=== PATIENT | male | born 1945 | race Hispanic/Latino ===

== ENCOUNTER 2019-09-20 06:19 | Emergency (ER) | payer MEDICARE ==
--- NOTE | 2019-09-20 18:29 | Emergency Department Report ---
ED General Adult HPI - General Chief complaint: Psych Stated complaint: SHAKING/KENNY Time Seen by Provider: 09/20/19 18:05 Source: patient, EMS Mode of arrival: Wheelchair Limitations: Physical Limitation - History of Present Illness Initial comments: Patient is a 73-year-old male that presents emergency room with multiple complaints. Patient states he is having increased anxiety since he quit drinking 2 weeks ago. Patient states the anxiety is making it difficult for him to walk and is also feeling short of breath due to the anxiety. Patient states he has taken Ativan in the past with great success. Patient states every time he tries to stop drinking his anxiety kicks up. Patient denies chest pain. Patient denies nausea vomiting. Patient states his difficulty walking and shortness of breath and anxiety have been going on for 1 week. Patient also complains of right lower abdominal pain secondary to a inguinal hernia. Patient states the pain is a 7 out of 10. Patient states the pain is better with rest and worse with palpation and movement. Patient states he normally can reduce it but today is not able to. -: Sudden Location: abdomen Severity scale (0 -10): 7 Quality: stabbing Consistency: constant Improves with: rest Worsens with: movement Associated Symptoms: loss of appetite, shortness of breath. denies: confusion, chest pain, cough, diaphoresis, fever/chills, headaches, malaise, nausea/vomiting, rash, seizure, syncope, weakness Treatments Prior to Arrival: none - Related Data Previous Rx's Medication Instructions Recorded Last Taken Type Folic Acid [Folvite] 1 mg PO QDAY #30 tablet 09/09/19 Unknown Rx Thiamine [Vitamin B-1] 100 mg PO DAILY #30 tablet 09/09/19 Unknown Rx LORazepam [Ativan] 0.5 mg PO BID PRN #12 tab 09/20/19 Unknown Rx Allergies Allergy/AdvReac Type Severity Reaction Status Date / Time No Known Allergies Allergy Verified 08/16/19 07:54 ED Review of Systems ROS: Stated complaint: SHAKING/KENNY Other details as noted in HPI Constitutional: denies: chills, fever Eyes: denies: eye pain, eye discharge, vision change ENT: denies: ear pain, throat pain Respiratory: shortness of breath. denies: cough, wheezing Cardiovascular: denies: chest pain, palpitations Endocrine: no symptoms reported Gastrointestinal: abdominal pain. denies: nausea, diarrhea Genitourinary: denies: urgency, dysuria Musculoskeletal: denies: back pain, joint swelling, arthralgia Skin: denies: rash, lesions Neurological: denies: headache, weakness, paresthesias Psychiatric: anxiety. denies: depression Hematological/Lymphatic: denies: easy bleeding, easy bruising ED Past Medical Hx - Past Medical History Previous Medical History?: Yes Hx Hypertension: No Hx Psychiatric Treatment: Yes (depressed/anxiety) Additional medical history: alchoholic - Surgical History Past Surgical History?: Yes Additional Surgical History: left inguinal hernia - Family History Family history: no significant - Social History Smoking Status: Never Smoker Substance Use Type: Alcohol - Medications Home Medications: Home Medications Medication Instructions Recorded Confirmed Last Taken Type Folic Acid [Folvite] 1 mg PO QDAY #30 tablet 09/09/19 Unknown Rx Thiamine [Vitamin B-1] 100 mg PO DAILY #30 tablet 09/09/19 Unknown Rx LORazepam [Ativan] 0.5 mg PO BID PRN #12 tab 09/20/19 Unknown Rx ED Physical Exam - General Limitations: Physical Limitation General appearance: alert, in no apparent distress - Head Head exam: Present: atraumatic, normocephalic - Eye Eye exam: Present: normal appearance, PERRL Pupils: Present: normal accommodation - ENT ENT exam: Present: mucous membranes moist - Neck Neck exam: Present: normal inspection, full ROM. Absent: tenderness, meningismus - Respiratory Respiratory exam: Present: normal lung sounds bilaterally. Absent: respiratory distress - Cardiovascular Cardiovascular Exam: Present: regular rate, normal rhythm. Absent: systolic murmur, diastolic murmur, rubs, gallop - GI/Abdominal GI/Abdominal exam: Present: soft, tenderness (rt lower abd and inguinal tenderness to palpation), normal bowel sounds, hernia. Absent: distended - Rectal Rectal exam: Present: deferred - Extremities Exam Extremities exam: Present: normal inspection - Back Exam Back exam: Present: normal inspection - Neurological Exam Neurological exam: Present: alert, oriented X3 - Psychiatric Psychiatric exam: Present: anxious - Skin Skin exam: Present: warm, dry, intact, normal color. Absent: rash ED Course Vital Signs 09/20/19 09/20/19 09/20/19 06:30 19:30 19:45 Temperature 97.7 F Pulse Rate 86 104 H 105 H Respiratory 20 21 Rate Blood Pressure 125/89 148/90 O2 Sat by Pulse 98 Oximetry 09/20/19 09/20/19 09/20/19 20:00 20:15 20:30 Temperature Pulse Rate 111 H 103 H 97 H Respiratory 21 20 15 Rate Blood Pressure 148/90 145/95 133/78 O2 Sat by Pulse 96 92 Oximetry - Reevaluation(s) Reevaluation #1: I reexamined the patient. Patient's right inguinal hernia appears softer. The patient's right inguinal hernia was completely reduced. No tenderness now. Patient states his pain and his anxiety are better. Patient states his shortness of breath is gone. 09/20/19 23:01 Reevaluation #2: I discussed all results and clinical findings with patient. I discussed plan of care with patient. Patient agrees with plan of care. Patient is stable for discharge. Patient will be discharged home. Patient given discharge instructions. Patient voiced understanding of discharge instructions. 09/20/19 23:40 ED Medical Decision Making - Lab Data Result diagrams: 09/20/19 18:54 09/20/19 18:54 - EKG Data -: EKG Interpreted by [facility] EKG shows normal: sinus rhythm, axis, intervals, QRS complexes, ST-T waves Rate: normal - Radiology Data Radiology results: report reviewed, image reviewed CT abdomen pelvis w con INDICATION: Abdominal pain,. Right inguinal hernia TECHNIQUE: All CT scans at this location are performed using the following dose modulation technique: Automated exposure control. Helical slices were obtained through the abdomen and pelvis. 100 cc of Omnipaque 300 is administered. COMPARISON: None available. FINDINGS: Abdomen: There is linear atelectasis in the right lung base. The liver, spleen, pancreas, adrenal glands, and kidneys show no acute abnormalities. There is a small nonobstructing calyceal stone in the lower pole the left kidney. Atherosclerotic calcifications are noted in the celiac artery and splenic arteries. There is no adenopathy. The abdominal aorta is normal in diameter. The gallbladder is grossly unremarkable. There is no biliary dilatation. Appendix is unremarkable. Pelvis: There is no obstruction or inflammation. There are no abnormal collections. There is a fat-containing right hernia. On review of bone windows, no acute osseous abnormalities are seen. IMPRESSION: 1. There is a fat-containing right inguinal hernia. There is no obstruction, inflammation, or free air. There are no abnormal collections. CHEST 1 VIEW INDICATION / CLINICAL INFORMATION: MAIN: sob for 2 days. COMPARISON: 08/16/2019 FINDINGS: SUPPORT DEVICES: None. HEART / MEDIASTINUM: No significant abnormality. LUNGS / PLEURA: No significant pulmonary or pleural abnormality. No pneumoth orax. ADDITIONAL FINDINGS: Chronically elevated right hemidiaphragm. IMPRESSION: 1. No acute findings. No interval change. - Medical Decision Making Patient is a 73-year-old male that presents emergency room with complaints of shortness of breath and anxiety as well as lower abdominal pain. Patient's pain was around his right inguinal hernia. Patient had a CT scan of his abdomen which shows his inguinal hernia is only fat-containing. After fluids, Dilaudid and Ativan the patient's hernia was completely reducible. Patient's symptoms improved with treatment. Patient's anxiety and shortness of breath were completely resolved with treatment. Patient left the ER essentially asymptomatic. Patient stable for discharge. Patient discharged home. Patient given discharge instructions. Patient will require follow-up with his primary care and general surgery. - Differential Diagnosis ANX. PANIC. SOB. ABD PAIN. HERNIA. Critical care attestation.: If time is entered above; I have spent that time in minutes in the direct care of this critically ill patient, excluding procedure time. ED Disposition Clinical Impression: Tremor, Anxiety, SOB (shortness of breath) Abdominal pain Qualifiers: Abdominal location: lower abdomen, unspecified Qualified Code(s): R10.30 - Lower abdominal pain, unspecified Inguinal hernia Qualifiers: Obstruction and gangrene presence: without obstruction or gangrene Laterality: unilateral Recurrence: recurrent Qualified Code(s): K40.91 - Unilateral inguinal hernia, without obstruction or gangrene, recurrent Disposition: DC-01 TO HOME OR SELFCARE Is pt being admited?: No Does the pt Need Aspirin: No Condition: Stable Instructions: Anxiety (ED), Generalized Anxiety Disorder (ED), Inguinal Hernia (ED) Additional Instructions: Patient to follow-up with primary care in 2 to 3 days. Patient to follow-up with general surgery, Dr. Mock in 2 to 3 days. Patient to rest. Patient to increase water. Patient to take meds as directed. Patient to return to ER if condition worsens, changes or new symptoms arise. Patient to take Tylenol or ibuprofen as needed for pain. Prescriptions: LORazepam [Ativan] 0.5 mg PO BID PRN #12 tab PRN Reason: Anxiety Referrals: PRIMARY CAREMD [Primary Care Provider] - 2-3 Days HUMA MOCK MD [Staff Physician] - 2-3 Days Time of Disposition: 23:44
[2019-09-20] MEDS ORDERED: SODIUM CHLORIDE 0.9% 1000 ML 1,000 ML IV ONE (18:33)
[2019-09-20] MEDS ORDERED: LORazepam 2 MG/ML VIAL IV ONE (18:35)
[2019-09-20] MEDS ORDERED: HYDROmorphone 1 MG/1 ML INJ IV ONE (18:35)
--- NOTE | 2019-09-20 19:12 | XRay Report ---
CHEST 1 VIEW INDICATION / CLINICAL INFORMATION: MAIN: sob for 2 days. COMPARISON: 08/16/2019 FINDINGS: SUPPORT DEVICES: None. HEART / MEDIASTINUM: No significant abnormality. LUNGS / PLEURA: No significant pulmonary or pleural abnormality. No pneumothorax. ADDITIONAL FINDINGS: Chronically elevated right hemidiaphragm. IMPRESSION: 1. No acute findings. No interval change. Signer Name: Barbara Short MD Signed: 09/20/2019 7:08 PM Workstation Name: [id number]
[2019-09-20 19:19] LABS: Basophils % (Auto) 0.3 % (0.0-1.8); Eosinophils % (Auto) 0.4 % (0.0-4.3); Hematocrit 44.1 % (35.5-45.6); Hemoglobin 15.1 gm/dl (11.8-15.2); Lymphocytes # (Auto) 2.4 K/mm3 (1.2-5.4); Lymphocytes % (Auto) 18.6 % (13.4-35.0); Mean Corpuscular HGB Conc 34 % (32-34); Mean Corpuscular Volume 92 fl (84-94); Monocytes # (Auto) 1.3 K/mm3 (0.0-0.8); Monocytes % (Auto) 10.1 % (0.0-7.3); Platelet Count 257 K/mm3 (140-440); Red Blood Count 4.82 M/mm3 (3.65-5.03); Red Cell Distribution Width 15.4 % (13.2-15.2)
[2019-09-20 19:44] LABS: Creatine Kinase MB 3.6 ng/mL (0.0-4.0)
[2019-09-20 22:03] LABS: Alanine Aminotransferase 10 units/L (7-56); Albumin 4.7 g/dL (3.9-5); BUN/Creatinine Ratio 19; Blood Urea Nitrogen 17 mg/dL (9-20); Hemolysis Index 13
[2019-09-20 22:37] LABS: Amphetamine Screen,Urine PRESUMPTIVE NEGATIVE; Benzodiazepines Screen,Urine PRESUMPTIVE NEGATIVE; Cannabinoid Screen,Urine PRESUMPTIVE NEGATIVE; Cocaine Screen,Urine PRESUMPTIVE NEGATIVE; Methadone Screen,Urine PRESUMPTIVE NEGATIVE; Opiate Screen,Urine PRESUMPTIVE NEGATIVE
[2019-09-20 22:44] LABS: Bilirubin,Urine NEG (Negative); Blood,Urine NEG (Negative); Color,Urine Yellow (Yellow); Mucus,Urine 2+ /HPF; Protein,Urine <15 mg/dL mg/dL (Negative); Urobilinogen,Urine < 2.0 mg/dL (<2.0)
--- NOTE | 2019-09-20 23:17 | Cat Scan Report ---
CT abdomen pelvis w con INDICATION: Abdominal pain,. Right inguinal hernia TECHNIQUE: All CT scans at this location are performed using the following dose modulation technique: Automated exposure control. Helical slices were obtained through the abdomen and pelvis. 100 cc of Omnipaque 30 0 is administered. COMPARISON: None available. FINDINGS: Abdomen: There is linear atelectasis in the right lung base. The liver, spleen, pancreas, adrenal gla nds, and kidneys show no acute abnormalities. There is a small nonobstructing calyceal stone in the l ower pole the left kidney. Atherosclerotic calcifications are noted in the celiac artery and splenic arteries. There is no adenopathy. The abdominal aorta is normal in diameter. The gallbladder is gross ly unremarkable. There is no biliary dilatation. Appendix is unremarkable. Pelvis: There is no obstruction or inflammation. There are no abnormal collections. There is a fat-containing right hernia. On review of bone windows, no acute osseous abnormalities are seen. IMPRESSION: 1. There is a fat-containing right inguinal hernia. There is no obstruction, inflammation, or free ai r. There are no abnormal collections. Signer Name: Piter Blanchard MD Signed: 09/20/2019 11:13 PM Workstation Name: [id number]
[2019-09-21 00:20] VITALS: BP 113/71
== END 2019-09-21 01:23 | disposition home or self-care (01) ==
LOC: ED 06:19
DX: F41.9 Anxiety disorder, unspecified (principal); K40.91 Unilateral inguinal hernia, without obstruction or gangrene, recurrent; R25.1 Tremor, unspecified; R06.02 Shortness of breath; R10.30 Lower abdominal pain, unspecified; R26.2 Difficulty in walking, not elsewhere classified; Z79.899 Other long term (current) drug therapy
CPT/HCPCS: 36415; 71045; 74177; 80053; 80307; 81001; 82140; 82550; 82553; 84484; 85025; 93005; 93010; 96374; 96375; 99285; J1170; J2060; J7030; Q9967; 80320; G0480

== ENCOUNTER 2019-10-01 08:06 | Emergency (ER) | payer MEDICARE ==
[2019-10-01] MEDS ORDERED: ACETAMINOPHEN 500 MG TAB PO ONE (09:15)
--- NOTE | 2019-10-01 09:16 | Emergency Department Report ---
ED General Adult HPI - General Chief complaint: Urogenital-Male Stated complaint: HERNIA Time Seen by Provider: 10/01/19 08:31 Source: patient, RN notes reviewed, old records reviewed Mode of arrival: Stretcher Limitations: No Limitations - History of Present Illness Initial comments: The patient is a 73-year-old gentleman. The patient has a history of alcoholism, anxiety. The patient was evaluated at this hospital approximately 10 to 11 days ago. He was seen by my colleague. He apparently had a hernia. The hernia was reduced. He had a CT scan of the abdomen pelvis which showed a fat-containing right-sided inguinal hernia without evidence of obstruction. Today, the patient presents to the ER with a complaint of right-sided inguinal hernia. It is throbbing and aching. It is constant. It decreases with rest, and increases with palpation and range of motion. There is no complaint of nausea, vomiting or diarrhea. The hernia is reducible in the emergency room without difficulty. He also complains of left-sided lower quadrant abdominal lump. He believes that this is new over the past few days. He endorses multiple other complaints, including anxiety, chest tightness. He reported to myself and the nurse taking care of him that he lives in a personal mcc, and he no longer wants to stay in that personal mcc. He was seen by case management who clarified that the patient does not actually live in a personal mcc, but rather, is staying with a friend. The patient has made no complaints of homicidality or suicidality. -: days(s), week(s) Location: abdomen Severity scale (0 -10): 10 Quality: aching Consistency: other Improves with: other Worsens with: other - Related Data Previous Rx's Medication Instructions Recorded Last Taken Type Folic Acid [Folvite] 1 mg PO QDAY #30 tablet 09/09/19 Unknown Rx Thiamine [Vitamin B-1] 100 mg PO DAILY #30 tablet 09/09/19 Unknown Rx LORazepam [Ativan] 0.5 mg PO BID PRN #12 tab 09/20/19 Unknown Rx Allergies Allergy/AdvReac Type Severity Reaction Status Date / Time No Known Allergies Allergy Verified 08/16/19 07:54 ED Review of Systems ROS: Stated complaint: HERNIA Other details as noted in HPI Constitutional: denies: fever Cardiovascular: denies: syncope Gastrointestinal: abdominal pain Psychiatric: anxiety ED Past Medical Hx - Past Medical History Previous Medical History?: Yes Hx Hypertension: No Hx Psychiatric Treatment: Yes (depressed/anxiety) Additional medical history: alchoholic - Surgical History Past Surgical History?: No Additional Surgical History: left inguinal hernia - Social History Smoking Status: Never Smoker Substance Use Type: None - Medications Home Medications: Home Medications Medication Instructions Recorded Confirmed Last Taken Type Folic Acid [Folvite] 1 mg PO QDAY #30 tablet 09/09/19 Unknown Rx Thiamine [Vitamin B-1] 100 mg PO DAILY #30 tablet 09/09/19 Unknown Rx LORazepam [Ativan] 0.5 mg PO BID PRN #12 tab 09/20/19 Unknown Rx ED Physical Exam - General Limitations: No Limitations General appearance: alert, anxious - Head Head exam: Present: atraumatic, normocephalic - Eye Eye exam: Present: normal appearance, EOMI. Absent: nystagmus - ENT ENT exam: Present: normal exam, normal orophraynx, mucous membranes moist, normal external ear exam - Neck Neck exam: Present: normal inspection, full ROM. Absent: tenderness, meningismus - Respiratory Respiratory exam: Present: normal lung sounds bilaterally. Absent: respiratory distress - Cardiovascular Cardiovascular Exam: Present: regular rate, normal rhythm, normal heart sounds. Absent: bradycardia, tachycardia, irregular rhythm, systolic murmur, diastolic murmur, rubs, gallop - GI/Abdominal GI/Abdominal exam: Present: soft, normal bowel sounds, hernia, other (There is an easily reducible right-sided inguinal hernia). Absent: distended, tenderness, guarding, rebound, rigid - Rectal Rectal exam: Present: deferred - exam: Present: normal inspection, other (Chaperoned by nurse Odilia Lim. There is an easily reducible right-sided inguinal hernia, with no redness, pus, streaking or tenderness. There is normal testicular lie. There is normal cremasteric reflex bilaterally.). Absent: testicular tenderness External exam: Present: normal external exam - Extremities Exam Extremities exam: Present: normal inspection, full ROM, other (2+ pulses noted in the bilateral upper and lower extremities. There is no long bony tenderness. The compartments are soft. The pelvis is stable. There is no redness, pus or streaking.). Absent: pedal edema, calf tenderness - Back Exam Back exam: Present: normal inspection, full ROM. Absent: tenderness, CVA tenderness (R), CVA tenderness (L), paraspinal tenderness, vertebral tenderness - Neurological Exam Neurological exam: Present: alert, other (There is no facial droop. The tongue is midline. Extraocular movements are intact bilaterally. There is 5 out of 5 strength in bilateral upper and lower extremities. Sensation is intact to light touch bilateral upper and lower extremities. ) - Psychiatric Psychiatric exam: Present: anxious - Skin Skin exam: Present: warm, dry, intact, normal color. Absent: rash ED Course Vital Signs 10/01/19 10/01/19 10/01/19 08:37 09:47 10:34 Temperature 98.4 F Pulse Rate 70 Respiratory 23 16 20 Rate Blood Pressure 137/96 [Left] O2 Sat by Pulse 96 Oximetry - Reevaluation(s) Reevaluation #1: 10/01/19 10:26 Differential diagnosis, including but not limited to: Inguinal hernia, anxiety, secondary gain, malingering, Case management patient, electrolyte derangement Assessment and plan: 73-year-old gentleman who is a known alcoholic, who has been admitted to the medical service in the past for electrolyte derangement, presenting with multiple complaints, including anxiety, chest discomfort with anxiety, right inguinal hernia, possible homelessness, and suspected lump in his left lower quadrant He recently had a cardiac re-stratification at this hospital, troponins were negative and x-ray the chest was unremarkable. The patient denies DVT and pulmonary embolism risk factors. He indicates has been having chest discomfort and anxiety for months and years. His EKG today is morphologically unchanged from his prior EKG from August 2019. He also complains of right-sided inguinal hernia, which is easily reducible, and not incarcerated, strangulated or obstructed. He had a CT scan of the abdomen pelvis this month which showed fat-containing hernia. He can follow-up with an outpatient general surgeon for this. His left lower quadrant is unremarkable on physical examination. The CT scan of his abdomen pelvis that was performed this month did not show any significant findings. It appears that the patient was not truthful with myself and the nurse taking care of him, as he told us he was in a personal mcc, but Claude, he is living with a friend/finisher brush. This was confirmed by case management. He will be given resources for outpatient homeless shelters. We will treat with acetaminophen. I explained to the patient that he would be able to follow-up as an outpatient with primary care, and general surgery. Given his history of electrolyte derangement and hyponatremia in the past, we will obtain basic m etabolic panel. Explained this to the patient. We also discussed ways that he could get around to his appointments, including cab, and ride share, such as lift and or Uber. We also explained that the patient should feel free to engage friends, family members, relatives, etc. to assist in getting back and forth to appointments. 10/01/19 10:29 Reevaluation #2: 10/01/19 10:30 Patient refusing blood draws. Patient alert and oriented x3. He is clinically sober. He exhibits decision-making capacity. Reevaluation #3: 10/01/19 10:44 Patient easily able to get himself dressed without significant difficulty. ED Medical Decision Making - Lab Data Vital Signs 10/01/19 10/01/19 08:37 09:47 Temperature 98.4 F Pulse Rate 70 Respiratory 23 16 Rate Blood Pressure 137/96 [Left] O2 Sat by Pulse 96 Oximetry - EKG Data -: EKG Interpreted by [facility] EKG shows normal: sinus rhythm Rate: normal - EKG Data 10/01/19 10:23 Sinus rhythm, 66 bpm. Left axis deviation, borderline left anterior fascicular block, QTC 433 ms, the EKG is not consistent with ST elevation myocardial infarction. Critical care attestation.: If time is entered above; I have spent that time in minutes in the direct care of this critically ill patient, excluding procedure time. ED Disposition Clinical Impression: Inguinal hernia, Case management patient Disposition: DC-07 LEFT AGAINST MED ADVICE Is pt being admited?: No Does the pt Need Aspirin: No Condition: Undetermined Additional Instructions: Continue outpatient medications. Avoid consumption of alcohol. Follow-up as soon as possible with an outpatient primary care doctor, and/or general surgeon. Return to the emergency room right away with new, worsened or different symptoms, or symptoms not present on the initial emergency room evaluation. Referrals: MYLA MARKS MD [Staff Physician] - 3-5 Days HUMA MOCK MD [Staff Physician] - 3-5 Days [facility] [Provider Group] - 3-5 Days [facility] [Provider Group] - 3-5 Days
[2019-10-01 10:48] VITALS: BP 150/91
== END 2019-10-01 10:30 | disposition left against medical advice (07) ==
LOC: ED 08:06
DX: K40.90 Unilateral inguinal hernia, without obstruction or gangrene, not specified as recurrent (principal); F41.9 Anxiety disorder, unspecified; F32.9 Major depressive disorder, single episode, unspecified; Z79.899 Other long term (current) drug therapy
CPT/HCPCS: 93005; 93010

== ENCOUNTER 2019-10-01 17:20 | Emergency (ER) | payer MEDICARE ==
--- NOTE | 2019-10-01 17:51 | Event Note ---
ED Screening Note Date of service: 10/01/19 Time: 17:50 ED Screening Note: 73 male presents for med clearance for [facility] This initial assessment/diagnostic orders/clinical plan/treatment(s) is/are subject to change based on patients health status, clinical progression and re- assessment by fellow clinical providers in the ED. Further treatment and workup at subsequent clinical providers discretion. Patient/guardian urged not to elope from the ED as their condition may be serious if not clinically assessed and managed. Initial orders include: labs, ua main side eval
[2019-10-01 18:37] LABS: Basophils # (Auto) 0.1 K/mm3 (0.0-0.1); Basophils % (Auto) 1.1 % (0.0-1.8); Eosinophils # (Auto) 0.3 K/mm3 (0.0-0.4); Eosinophils % (Auto) 3.5 % (0.0-4.3); Hematocrit 43.8 % (35.5-45.6); Hemoglobin 14.5 gm/dl (11.8-15.2); Lymphocytes # (Auto) 2.2 K/mm3 (1.2-5.4); Mean Corpuscular HGB Conc 33 % (32-34); Mean Corpuscular Volume 94 fl (84-94); Monocytes # (Auto) 0.9 K/mm3 (0.0-0.8); Monocytes % (Auto) 11.4 % (0.0-7.3); Platelet Count 298 K/mm3 (140-440); Red Blood Count 4.67 M/mm3 (3.65-5.03); Red Cell Distribution Width 15.2 % (13.2-15.2)
[2019-10-01 18:49] LABS: Bilirubin,Urine NEG (Negative); Blood,Urine NEG (Negative); Color,Urine Yellow (Yellow); Protein,Urine <15 mg/dL mg/dL (Negative); Urobilinogen,Urine < 2.0 mg/dL (<2.0); WBC,Urine < 1.0 /HPF (0.0-6.0)
[2019-10-01 18:58] LABS: Amphetamine Screen,Urine PRESUMPTIVE NEGATIVE; Benzodiazepines Screen,Urine PRESUMPTIVE NEGATIVE; Cannabinoid Screen,Urine PRESUMPTIVE NEGATIVE; Cocaine Screen,Urine PRESUMPTIVE NEGATIVE; Methadone Screen,Urine PRESUMPTIVE NEGATIVE; Opiate Screen,Urine PRESUMPTIVE NEGATIVE
[2019-10-01 19:12] LABS: BUN/Creatinine Ratio 14; Blood Urea Nitrogen 11 mg/dL (9-20); Calcium 9.1 mg/dL (8.4-10.2); Hemolysis Index 3
--- NOTE | 2019-10-01 20:47 | Emergency Department Report ---
ED Medical Clearance HPI - General Chief complaint: Psych Stated complaint: MED CLEAR Time Seen by Provider: 10/01/19 20:21 Source: patient Mode of arrival: Ambulatory Limitations: No Limitations - History of Present Illness Initial comments: Patient is a 73-year-old male that presents emergency room with complaints of needing medical clearance to enter a alcohol treatment program. Patient states he has not had a drink for 3-4 weeks. Patient states he has been accepted into [facility] and just needs medical clearance. Patient denies pain. Patient denies suicidal ideation. Patient denies any physical complaints. Patient states he is having a small amount of anxiety. Patient states that his anxiety is better with rest and with Xanax. Patient states that he wants to make sure he does not go back to drinking he wants to get a little bit help. MD Complaint: medical clearance request -: Gradual Reason for Medical Clearance: medical condition Place: home Alledged Intoxication: No Compliant with Home Medications: Yes Traumatic Symptoms: denies traumatic injury Associated Symptoms: denies other symptoms. denies: chest pain, shortness of b reath, palpitations, diaphoresis, confusion, cough, fever/chills, headaches, anorexia, malaise, nausea/vomiting, rash, seizure, syncope, weakness Treatments Prior to Arrival: none Home medications: Previous Rx's Medication Instructions Recorded Last Taken Type Folic Acid [Folvite] 1 mg PO QDAY #30 tablet 09/09/19 Unknown Rx Thiamine [Vitamin B-1] 100 mg PO DAILY #30 tablet 09/09/19 Unknown Rx LORazepam [Ativan] 0.5 mg PO BID PRN #12 tab 09/20/19 Unknown Rx Allergies/Adverse reactions: Allergies Allergy/AdvReac Type Severity Reaction Status Date / Time No Known Allergies Allergy Verified 08/16/19 07:54 ED Review of Systems ROS: Stated complaint: MED CLEAR Other details as noted in HPI Constitutional: denies: chills, fever Eyes: denies: eye pain, eye discharge, vision change ENT: denies: ear pain, throat pain Respiratory: denies: cough, shortness of breath, wheezing Cardiovascular: denies: chest pain, palpitations Endocrine: no symptoms reported Gastrointestinal: denies: abdominal pain, nausea, diarrhea Genitourinary: denies: urgency, dysuria Musculoskeletal: denies: back pain, joint swelling, arthralgia Skin: denies: rash, lesions Neurological: denies: headache, weakness, paresthesias Psychiatric: anxiety. denies: depression Hematological/Lymphatic: denies: easy bleeding, easy bruising ED Past Medical Hx - Past Medical History Previous Medical History?: Yes Hx Hypertension: No Hx Psychiatric Treatment: Yes (depressed/anxiety) Additional medical history: alchoholic - Surgical History Past Surgical History?: Yes Additional Surgical History: left inguinal hernia - Family History Family history: no significant - Social History Smoking Status: Never Smoker Substance Use Type: None - Medications Home Medications: Home Medications Medication Instructions Recorded Confirmed Last Taken Type Folic Acid [Folvite] 1 mg PO QDAY #30 tablet 09/09/19 Unknown Rx Thiamine [Vitamin B-1] 100 mg PO DAILY #30 tablet 09/09/19 Unknown Rx LORazepam [Ativan] 0.5 mg PO BID PRN #12 tab 09/20/19 Unknown Rx ED Physical Exam - General Limitations: No Limitations General appearance: alert, in no apparent distress - Head Head exam: Present: atraumatic, normocephalic - Eye Eye exam: Present: normal appearance - ENT ENT exam: Present: mucous membranes moist - Neck Neck exam: Present: normal inspection - Respiratory Respiratory exam: Present: normal lung sounds bilaterally. Absent: respiratory distress - Cardiovascular Cardiovascular Exam: Present: regular rate, normal rhythm. Absent: systolic murmur, diastolic murmur, rubs, gallop - GI/Abdominal GI/Abdominal exam: Present: soft, normal bowel sounds. Absent: distended, tenderness, guarding - Rectal Rectal exam: Present: deferred - Extremities Exam Extremities exam: Present: normal inspection - Back Exam Back exam: Present: normal inspection - Neurological Exam Neurological exam: Present: alert, oriented X3 - Psychiatric Psychiatric exam: Present: normal affect, normal mood - Skin Skin exam: Present: warm, dry, intact, normal color. Absent: rash ED Course Vital Signs 10/01/19 10/01/19 21:12 21:32 Pulse Rate 84 Respiratory 16 20 Rate Blood Pressure 127/90 [Right] O2 Sat by Pulse 94 Oximetry - Reevaluation(s) Reevaluation #1: I discussed all results and clinical findings with patient. I discussed plan of care with patient. Patient agrees with plan of care. Patient is stable for discharge. Patient will be discharged to rehab facility. Patient given discharge instructions. Patient voiced understanding of discharge instructions. 10/01/19 20:47 ED Medical Decision Making - Lab Data Result diagrams: 10/01/19 18:06 10/01/19 18:06 - Medical Decision Making Patient is a 73-year-old male that presents emergency room for medical clearance to enter a rehabilitation center. Patient has gone to [facility] and requested admission for alcohol abuse. Patient was sent here by [facility] in order to be medically cleared. Patient had labs done and are unremarkable. Patient has not had any alcohol for 3 weeks. Patient discharged and sent to [facility] to begin rehabilitation. Patient is medically cleared.. ED Disposition Clinical Impression: Anxiety, Alcohol abuse, Medical clearance for psychiatric admission Disposition: [id number] ANOTHER TYPE HLTHCARE Is pt being admited?: No Does the pt Need Aspirin: No Condition: Stable Instructions: Abuse of Alcohol (ED), Alcohol Withdrawal (ED), Anxiety (ED) Additional Instructions: Patient to be discharged from the ER and go directly to [facility] rehab facility. Patient to follow-up with primary care in 2 to 3 days. Patient to rest. Patient to increase water. Patient to take Tylenol or ibuprofen as needed for pain. Patient to take meds as directed. Patient to return to the ER if condition worsens, changes or new symptoms arise. Referrals: [facility] [Other] - 2-3 Days Time of Disposition: 20:50
[2019-10-01 21:34] VITALS: BP 127/90
== END 2019-10-01 21:42 | disposition other institution (70) ==
LOC: ED 17:20
DX: F41.9 Anxiety disorder, unspecified (principal); F10.10 Alcohol abuse, uncomplicated; Z04.6 Encounter for general psychiatric examination, requested by authority; Z98.890 Other specified postprocedural states; Z79.899 Other long term (current) drug therapy
CPT/HCPCS: 36415; 80048; 80307; 80320; 81001; 85025; G0480